=== PATIENT | male | born 1960 | race Caucasian/White ===

== ENCOUNTER 2019-08-09 10:51 | Outpatient (CLI) | payer BC, SELFPAY ==
[2019-08-09 12:24] LABS: Alanine Aminotransferase 19 U/L (16-63); Albumin Level 3.9 g/dL (3.4-5.0); Alkaline Phosphatase 112 U/L (46-116); Anion Gap 12.2 mmol/L (7-16); Aspartate Amino Transferase 26 U/L (15-37); Bilirubin,Total 0.7 mg/dL (0.00-1.00); Blood Urea Nitrogen 7 mg/dL (7-18); Calcium 9.7 mg/dL (8.5-10.1); Carbon Dioxide 31 mmol/L (21-32); Chloride 100 mmol/L (98-108); Cholesterol 146 mg/dL (0-200); Estimated Glomerular Filt Rate > 60; Glucose 130 mg/dL (70-99); HDL Direct 36 mg/dL (40-60); LDL Cholesterol Calculated 80 mg/dL (<130); Osmolality Calculated 288 mOsm/kg (285-295); Potassium 4.2 mmol/L (3.5-5.1); Sodium 139 mmol/L (136-145); Thyroid Stimulating Hormone 1.57 uIU/mL (0.36-3.74); Triglycerides 152 mg/dL (0-150)
[2019-08-09 13:31] LABS: Hemoglobin A1C 6.8 % (<5.7)
== END 2019-08-09 10:52 | disposition home or self-care (01) ==
PROVIDERS: PCP Nurse Practitioner Family; Visit Provider Nurse Practitioner Family
DX: Z00.00 Encounter for general adult medical examination without abnormal findings (principal); R73.09 Other abnormal glucose
CPT/HCPCS: 36415; 80053; 80061; 83036; 84443

== ENCOUNTER 2019-11-09 15:28 | Outpatient (CLI) | payer BC, SELFPAY ==
[2019-11-09 16:21] LABS: Cholesterol 139 mg/dL (0-200); HDL Direct 77 mg/dL (40-60); LDL Cholesterol Calculated 49 mg/dL (<130); Triglycerides 65 mg/dL (0-150)
[2019-11-10 16:33] LABS: Hemoglobin A1C 5.8 % (<5.7)
== END 2019-11-09 15:29 | disposition home or self-care (01) ==
LOC: CHSLAB 15:30
PROVIDERS: PCP Nurse Practitioner Family; Visit Provider Nurse Practitioner Family
DX: E78.5 Hyperlipidemia, unspecified (principal)
CPT/HCPCS: 36415; 80061; 83036

== ENCOUNTER 2020-02-22 11:47 | Outpatient (CLI) | payer BC, SELFPAY ==
--- NOTE | ~2020-02-22 | XR_ITS ---
XR hand LT 2V DATE: 02/22/2020 12:04 INDICATION: Swelling at second through fifth metacarpophalangeal areas for 3 days. No known injury. TECHNIQUE: AP and lateral views COMPARISON: None FINDINGS: No fracture or dislocation, periosteal reaction or bone destruction is detected. Joint spac es are preserved. No erosive change is evident. Very small likely degenerative ossicle at the medial aspect of the distal interphalangeal joint of th e second digit. Approximate 2 mm idiopathic calcific density or foreign body in the distal lateral forearm subcutaneo us tissues. IMPRESSION: No significant abnormality Reviewed, dictated and finalized at location A. ERN ROOM OPERATOR IMPRESSION: No significant abnormality
[2020-02-22 12:00] LABS: Basophils Absolute Auto 0.04 K/mm3 (0.00-0.10); Basophils Percent Auto 0.6 % (0.0-1.0); Eosinophils Absolute Auto 0.05 K/mm3 (0.02-0.50); Eosinophils Percent Auto 0.7 % (1.0-6.0); Hematocrit 42.7 % (40.0-54.0); Hemoglobin 14.1 g/dL (14.0-18.0); Immature Granulocyte Absolute 0.02 K/mm3 (0.00-0.00); Immature Granulocyte Percent A 0.3 % (0.0-0.0); Lymphocytes Absolute Auto 1.47 K/mm3 (1.10-4.50); Lymphocytes Percent Auto 20.8 % (18.0-42.0); Monocytes Absolute Auto 0.81 K/mm3 (0.10-0.90); Monocytes Percent Auto 11.5 % (2.0-11.0); Neutrophils Absolute Auto 4.7 K/mm3 (1.7-7.2); Neutrophils Percent Auto 66.1 % (50.0-70.0); Platelet Count Result 190 K/mm3 (150-420); Red Blood Count 4.27 M/mm3 (4.70-6.10); Red Cell Distribution Width 13.9 % (11.6-14.4); White Blood Count 7.1 K/mm3 (4.8-10.8)
[2020-02-22 12:24] LABS: Hemoglobin A1C 6.1 % (<5.7)
[2020-02-22 12:29] LABS: Alanine Aminotransferase 19 U/L (16-63); Alkaline Phosphatase 104 U/L (46-116); Anion Gap 7 mmol/L (8-16); Aspartate Amino Transferase 16 U/L (15-37); Bilirubin,Total 0.9 mg/dL (0.00-1.00); Blood Urea Nitrogen 17 mg/dL (7-18); Calcium 9.9 mg/dL (8.5-10.1); Carbon Dioxide 32 mmol/L (21-32); Chloride 101 mmol/L (98-108); Cholesterol 183 mg/dL (0-200); Estimated Glomerular Filt Rate > 60; Glucose 170 mg/dL (70-99); HDL Direct 49 mg/dL (40-60); LDL Cholesterol Calculated 93 mg/dL (<130); Osmolality Calculated 295 mOsm/kg (285-295); Potassium 4.1 mmol/L (3.5-5.1); Sodium 140 mmol/L (136-145); Total Protein 7.9 g/dL (6.4-8.2); Triglycerides 207 mg/dL (0-150); Uric Acid 5.8 mg/dL (3.5-7.2)
== END 2020-02-22 11:48 | disposition home or self-care (01) ==
PROVIDERS: PCP Nurse Practitioner Family; Visit Provider Nurse Practitioner Family
DX: M79.89 Other specified soft tissue disorders (principal); S69.90XA Unspecified injury of unspecified wrist, hand and finger(s), initial encounter; I10 Essential (primary) hypertension; E11.9 Type 2 diabetes mellitus without complications; E78.5 Hyperlipidemia, unspecified
CPT/HCPCS: 36415; 73120; 80053; 80061; 83036; 84550; 85025

== ENCOUNTER 2020-07-10 03:39 | Emergency (ER) | payer BC, SELFPAY ==
[2020-07-10 03:45] VITALS: BP 147/111; PULSE 99; RESP 20; TEMP 36.4; O2SAT 96
[2020-07-10 04:22] VITALS: BP 140/98; PULSE 82; RESP 20; O2SAT 97
--- NOTE | 2020-07-10 04:22 | ED.PSYCH ---
HPI - Psych General Source: patient Mode of arrival: ambulatory Limitations: no limitations History of Present Illness HPI Narrative: Patient comes in stating he has been anxious and feeling depressed. He states he has not wanted to do anything or even get out out of the house. He denies thoughts of self harm. Depression appears to be moderately severe, and ongoing. It appears this started some weeks ago according to the patient. He has taken Wellbutrin in the past and has done well with it. There appears to have been no initial clear cause of depression, with this episode. No precipitating event. Measures he has taken at home to try to help himself, and improve his mood have not helped. He took wellbutrin in the past for depression. He is wondering if it would help now. complaint: feels depressed Onset (ago): week(s) Duration: constant History of same: Yes Relieving factors: other (did well with wellbutrin in the past) Exacerbating factors: other (Covid isolation) Context: significant life stressor Associated psychiatric symptoms: depression Associated symptoms: denies other symptoms Related Data Allergies Allergy/AdvReac Type Severity Reaction Status Date / Time No Known Allergies Allergy Verified 06/06/20 15:26 Review of Systems Constitutional: Constitutional: Reports no additional constitutional complaints Eyes: Eyes: Reports no additional eye complaints ENT: Reports system reviewed and no additional complaints, except as documented Cardiovascular: Cardiovascular: Reports no additional cardiovascular complaints Respiratory: Respiratory: Reports no additional respiratory complaints Gastrointestinal: Gastrointestinal: Reports no additional gastrointestinal complaints Genitourinary: Genitourinary: Reports no additional male genitourinary complaints Musculoskeletal: Musculoskeletal: Reports no additional musculoskeletal complaints Integumentary/Breasts: Skin/Breast: Reports system reviewed and no additional complaints, except as docu Neurologic: Reports system reviewed and no additional complaints, except as documented Psychiatric: Psychiatric: Reports no additional psychiatric complaints Endocrine: Endocrine: Reports no additional endocrine complaints Hematologic/Lymphatic: Hematologic/Lymphatic: Reports no additional hematologic/lymphatic complaints Allergic/Immunologic: Allergic/Immunologic: Reports no additional allergic/immunologic complaints PMFSH Past Medical History Medical History HTN (hypertension) Hyperlipidemia Nicotine dependence, cigarettes, uncomplicated Type 2 diabetes mellitus Surgical History Surgical History (Updated 07/10/20 @ 04:45 by Tonio Robbins MD) No significant past surgical history No significant past surgical history Family History Family History (Updated 07/10/20 @ 04:46 by Tonio Robbins MD) Father Skin cancer Mother Unintentional weight loss Social History Social History Smoking packs per day: 1 Smoking cigarettes per day: 20.0 Years smoked: 40 Smoking pack-years: 40.00 Smoking status: Current every day smoker Tobacco type: cigarettes Alcohol intake: current Drinks per week: 1 Substance use: never Substance use type: does not use Exam Const: General: no acute distress Orientation/consciousness: patient oriented x3 HENMT: Head: normal to inspection Ears: external ears normal and TM's normal bilaterally General nose exam: Normal external nose present Face and sinus: normal facial exam Mouth: Yes Normal oral and palatal mucosa present Throat: posterior oropharynx normal Eyes: Conjunctivae: conjunctivae normal Neck: Neck: normal visual inspection Chest: Chest palpation & inspection: normal inspection of the chest Resp: Effort & Inspection: normal respiratory effort Auscultation: clear to auscultation bilateral
== END 2020-07-10 04:28 | disposition home or self-care (01) ==
PROVIDERS: Emergency Provider Emergency Medicine; PCP Family Medicine
DX: F33.1 Major depressive disorder, recurrent, moderate (principal)
CPT/HCPCS: 99281; 99282

== ENCOUNTER 2022-10-18 03:55 | Emergency (ER) | payer BC, SELFPAY ==
--- NOTE | ~2022-10-18 | XR_ITS ---
EXAMINATION: XR chest 1V portable DATE: 10/18/2022 07:36 INDICATION: Cough. Fatigue. TECHNIQUE: A single frontal view of the chest was obtained. COMPARISON: None. FINDINGS: There is no pneumonia, pleural effusion, or pneumothorax. The heart size is normal. IMPRESSION: 1. No acute cardiopulmonary disease. Reviewed, dictated and finalized at location A.
--- NOTE | 2022-10-18 04:58 | PC.NURSE ---
Please see paperchart. Downtime charting started at 0355.
--- NOTE | 2022-10-18 06:29 | ED.DIZZY ---
HPI - Dizziness General Chief Complaint: Dizziness Source: patient Mode of arrival: ambulatory Limitations: no limitations History of Present Illness HPI Narrative: This is a 62 male presents with some the sensation of feeling lightheaded has been having diarrhea with nausea for the past 3 days, otherwise no cough or congestion no fever chills no shortness of breath or chest pain. Patient does have a history of hyper tension was taken off his blood pressure medicines because the blood pressure had got quite low. MD elicited complaint: lightheadedness Onset (ago): day(s) Description: lightheadedness Related Data Allergies Allergy/AdvReac Type Severity Reaction Status Date / Time No Known Allergies Allergy Verified 06/06/20 15:26 Review of Systems Review of Systems: All systems reviewed & are unremarkable except as noted in HPI and below PMFSH Past Medical History Medical History HTN (hypertension) Hyperlipidemia Nicotine dependence, cigarettes, uncomplicated Type 2 diabetes mellitus Surgical History Surgical History No significant past surgical history No significant past surgical history Family History Family History Father Skin cancer Mother Unintentional weight loss Social History Social History Smoking packs per day: 1 Smoking cigarettes per day: 20.0 Years smoked: 40 Smoking pack-years: 40.00 Smoking status: Current every day smoker Tobacco type: cigarettes Alcohol intake: current Drinks per week: 1 Substance use: never Substance use type: does not use Living arrangements: with family Exam Const: General: healthy appearing Nutritional Appearance: well nourished Orientation/consciousness: patient oriented x3 Limitations: no limitations Eyes: Conjunctivae: conjunctivae normal Chest: Chest palpation & inspection: normal inspection of the chest Resp: Effort & Inspection: normal respiratory effort Cardio: Rate: regular rate Rhythm: regular rhythm GI: GI Palp: Yes Soft to palpation Auscultation: normal bowel sounds Skin: General skin exam: normal color Rashes: no rashes Wounds: no wounds Neuro: General: patient oriented x3 Cranial nerves: Yes Nystagmus not present Extrem: General: normal to inspection and no clubbing, cyanosis or edema Psych: Mental Status: mental status grossly normal Affect: normal affect Course Course Emergency Course: Patient had a lower blood pressure systolic about 95 and received the fluid bolus with normal saline and current blood pressure was 123/70, checking orthostatics while standing his blood pressure did drop to 92/60, patient received an additional 0.5L bolus of fluids, x-ray reviewed and the rest of his blood work was reviewed, sodium level was 129 and will repeat sodium levels. Critical Care Time Critical Care Time Critical Care Time: No Discharge Plan Discharge Clinical Impression: Gastroenteritis, Dehydration, Hyponatremia Patient Disposition: Home, Self-Care Condition: Stable Instructions: Antibiotic Form, Dehydration (ED), Hyponatremia (ED), Gastroenteritis (ED) Additional Instructions: advise rest, drink plenty of fluids and follow up primary within 1 to 2 weeks for further evaluation. Prescriptions: New ondansetron 4 mg tablet,disintegrating 4 mg PO Q6H PRN (Reason: nausea and vomiting) Qty: 14 0RF No Action loratadine 10 mg tablet See Rx Instructions .ROUTE .COMPLEX Qty: 30 0RF Dose Instruction: TAKE 1 TABLET BY MOUTH EVERY DAY Rx Instructions: TAKE 1 TABLET BY MOUTH EVERY DAY hydrochlorothiazide 12.5 mg tablet 12.5 mg PO DAILY Qty: 30 0RF Follow-up/Referrals: Leonel Lee DO [Primary Care Provider] - Stand Alone Forms: Work/Scho
[2022-10-18] MEDS: SODIUM CHLORIDE 0.9% IV 500 ML 999 ML IV CONT (06:35)
[2022-10-18 06:37] LABS: Appearance Urine Clear (Clear); Blood Urine Negative (Negative); Color Urine Yellow (Yellow); Glucose Urine UA Negative (Negative); Ketones Urine Trace (Negative); Nitrate Urine Negative (Negative); Protein Urine 1+ (Negative)
[2022-10-18 06:38] LABS: Add Urine Microscopic? YES; Bacteria Urine 2+ /hpf; Bilirubin Urine Negative (Negative); Leukocyte Esterase Ur Negative (Negative); RBC Urine 0-2 /hpf (0-2); Squamous Epithelial Cell Urine None seen /hpf (Few); WBC Urine 0-3 /hpf (0-3)
[2022-10-18 06:48] LABS: Influenza A QL RT-PCR Negative (Negative); Influenza B QL RT-PCR Negative (Negative); RSV RNA, RT-PCR Negative (Negative); SARS-CoV-2 RNA PCR Negative (Negative)
[2022-10-18 06:49] LABS: Alanine Aminotransferase 9 U/L (16-63); Albumin Level 2.9 g/dL (3.4-5.0); Alkaline Phosphatase 145 U/L (46-116); Anion Gap 14 mmol/L (8-16); Aspartate Amino Transferase 23 U/L (15-37); Blood Urea Nitrogen 15 mg/dL (7-18); Calcium 9.3 mg/dL (8.5-10.1); Carbon Dioxide 24 mmol/L (21-32); Chloride 91 mmol/L (98-108); Estimated Glomerular Filt Rate 57; Glucose 182 mg/dL (70-99); Osmolality Calculated 273 mOsm/kg (285-295); Potassium 4.3 mmol/L (3.5-5.1); Sodium 129 mmol/L (136-145); Total Protein 8.1 g/dL (6.4-8.2); Troponin I 7.4 ng/L (0.00-60.4)
[2022-10-18 06:50] LABS: Anion Gap 11 mmol/L (8-16); Blood Urea Nitrogen 15 mg/dL (7-18); Calcium 8.7 mg/dL (8.5-10.1); Carbon Dioxide 24 mmol/L (21-32); Chloride 95 mmol/L (98-108); Estimated Glomerular Filt Rate > 60; Glucose 148 mg/dL (70-99); Osmolality Calculated 273 mOsm/kg (285-295); Potassium 3.9 mmol/L (3.5-5.1); Sodium 130 mmol/L (136-145)
[2022-10-18 06:52] LABS: Basophils Absolute Auto 0.05 K/mm3 (0.00-0.10); Basophils Percent Auto 0.5 % (0.0-1.0); Eosinophils Absolute Auto 0.03 K/mm3 (0.02-0.50); Eosinophils Percent Auto 0.3 % (1.0-6.0); Hematocrit 34.2 % (40.0-54.0); Hemoglobin 11.1 g/dL (14.0-18.0); Immature Granulocyte Absolute 0.05 K/mm3 (0.00-0.00); Immature Granulocyte Percent A 0.5 % (0.0-0.0); Lymphocytes Absolute Auto 0.84 K/mm3 (1.10-4.50); Lymphocytes Percent Auto 8.5 % (18.0-42.0); Mean Corpuscular HGB Conc 32.5 g/dL (32.0-36.0); Mean Corpuscular Hemoglobin 29.4 pg (27.0-31.0); Mean Corpuscular Volume 90.7 fL (78.0-102.0); Mean Platelet Volume 10.1 fl (8.7-11.0); Monocytes Percent Auto 11.1 % (2.0-11.0); Neutrophils Absolute Auto 7.9 K/mm3 (1.7-7.2); Neutrophils Percent Auto 79.1 % (50.0-70.0); Platelet Count Result 255 K/mm3 (150-420); Red Blood Count 3.77 M/mm3 (4.70-6.10); Red Cell Distribution Width 13.9 % (11.6-14.4); White Blood Count 9.9 K/mm3 (4.8-10.8)
[2022-10-18 07:09] VITALS: BP 113/66; PULSE 83; RESP 20; O2SAT 96
[2022-10-18 07:25] VITALS: BP 109/95; PULSE 85; RESP 20; TEMP 36.9; O2SAT 98
--- NOTE | 2022-10-19 20:45 | ECG_ITS ---
Measurements Intervals [place] Rate: 86 P: 51 WI: 166 QRS: 50 QRSD: 69 T: 49 QT: 334 QTc: 400 Interpretive Statements SINUS RHYTHM WITH OCCASIONAL SUPRAVENTRICULAR PREMATURE COMPLEXES LOW QRS VOLTAGE IN PRECORDIAL LEADS [QRS DEFLECTION < 1.0 mV IN CHEST LEADS] NONSPECIFIC T-WAVE ABNORMALITY ABNORMAL ECG NO PREVIOUS ECG AVAILABLE FOR COMPARISON Electronically Signed On 10-20-2022 7:18:55 CDT by Sanjeev Gomez M.D.
== END 2022-10-18 07:28 | disposition home or self-care (01) ==
PROVIDERS: Emergency Provider Emergency Medicine; PCP Family Medicine
DX: K52.9 Noninfective gastroenteritis and colitis, unspecified (principal); E86.0 Dehydration; E87.1 Hypo-osmolality and hyponatremia; E11.9 Type 2 diabetes mellitus without complications; I10 Essential (primary) hypertension; F17.210 Nicotine dependence, cigarettes, uncomplicated; Z20.822 Contact with and (suspected) exposure to COVID-19
CPT/HCPCS: 36415; 71045; 80048; 80053; 81001; 84484; 85025; 87637; 93005; 96360; 99283; J7040

== ENCOUNTER 2022-12-05 18:58 | Inpatient (IN) | payer MEDICAID, SELFPAY ==
--- NOTE | ~2022-12-05 | US_ITS ---
EXAMINATION: US biopsy liver DATE: 12/06/2022 13:08 INDICATION: Multiple liver masses TECHNIQUE: The procedure including the risks and benefits was discussed with the patient. Risks discu ssed included bleeding and infection. The patient understood the risks and agreed to proceed. The sk in overlying the liver was prepped and draped in usual sterile fashion. Anesthetic was administered with 1% lidocaine subcutaneously. An 18 gauge core biopsy needle was advanced under continuous ultra sound observation to the lesion of interest. 3 core biopsy specimens were obtained. The needle was removed and the entry site was cleaned and dressed. Post procedure ultrasound demonstrated no hemorr sanket. FINDINGS: Ultrasound images demonstrate multiple hypoechoic hepatic masses. Subsequent images demonst rate biopsy needle advanced into an approximately 1.8 cm mass at the lateral segment of the left hepa tic lobe. IMPRESSION: 1. Successful Ultrasound-guided biopsy of one of several hyperechoic hepatic masses concerning for me tastatic disease. Reviewed, dictated and finalized at location A. IMPRESSION: 1. Successful Ultrasound-guided biopsy of one of several hyperechoic hepatic ma sses concerning for metastatic disease.
--- NOTE | ~2022-12-05 | CT_ITS ---
EXAMINATION: CT abdomen pelvis wo con DATE: 12/05/2022 22:15 INDICATION: Flank pain. Abdominal pain. TECHNIQUE: Computed tomography (CT) of the abdomen and pelvis was performed without intravenous contr ast. Automated exposure control and iterative reconstruction technique were employed. The dose-length product was 268.14 mGy-cm. COMPARISON: None. FINDINGS: The visualized portions of the lung bases demonstrate mild atelectasis. No pleural effusion . The heart size is normal. No pericardial effusion. There are multiple ill-defined hypodense masses in the liver measuring up to 18 mm. The gallbladder is contracted. The spleen, pancreas, adrenal glan ds, and kidneys are normal. There is focal wall thickening of the distal sigmoid colon, consistent wi th primary malignancy. There is severe wall thickening of the more proximal sigmoid colon with a fist raysa to the bladder, consistent with chronic diverticulitis. There is gas in the bladder lumen. There are scattered diverticula in the colon. There are no dilated loops of bowel. The appendix is normal. Aortic atherosclerosis is noted. There are no pathologically enlarged lymph nodes. There is prominent fat in left inguinal canal that may be a hernia. There is a small volume of perihepatic ascites. The re is severe lumbar spondylosis and moderate thoracic spondylosis. There is mild chronic anterior wed ging of multiple thoracic vertebral bodies. IMPRESSION: 1. Focal wall thickening of distal sigmoid colon, consistent with primary malignancy. 2. Liver masses, consistent with metastatic disease. Ultrasound-guided core biopsy is recommended. 3. Small volume of perihepatic ascites. 4. 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 Reviewed, dictated and finalized at location E. IMPRESSION: 1. Focal wall thickening of distal sigmoid colon, consistent with primary malig [place]. 2. Liver masses, consistent with metastatic disease. Ultrasound-guided core bio psy is recommended. 3. Small volume of perihepatic ascites. 4. 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
[2022-12-05 19:03] VITALS: BP 132/60; PULSE 97; RESP 18; TEMP 36.4; O2SAT 100
[2022-12-05 19:17] LABS: Basophils Absolute Auto 0.1 K/mm3 (0.0-0.1); Basophils Percent Auto 0.3 % (0.2-1.2); Eosinophils Absolute Auto 0.1 K/mm3 (0-0.3); Eosinophils Percent Auto 0.4 % (0-4.4); Hemoglobin 9.4 g/dL (14.0-18.0); Immature Granulocyte Absolute 0.09 K/mm3 (0.00-0.031); Immature Granulocyte Percent A 0.6 % (0-0.5); Lymphocytes Percent Auto 8.2 % (18.3-44.2); Mean Corpuscular HGB Conc 31.3 g/dl (32-36); Mean Corpuscular Hemoglobin 28.1 pg (26-34); Mean Corpuscular Volume 89.6 fl (80-100); Mean Platelet Volume 9.2 fl (7.4-10.4); Monocytes Absolute Auto 0.9 K/mm3 (0.1-0.6); Monocytes Percent Auto 6.4 % (2.6-8.5); Neutrophils Absolute Auto 12.3 K/mm3 (1.3-6.7); Neutrophils Percent Auto 84.1 % (45.5-73.1); Platelet Count Result 379 k/mm3 (150-375); Red Blood Count 3.35 M/mm3 (4.6-6.20); Red Cell Distribution Width 17.2 % (11.5-14.5); White Blood Count 14.6 K/mm3 (4.5-10.0)
[2022-12-05 19:30] LABS: Alanine Aminotransferase 14 U/L (6-50); Albumin Level 3.1 g/dL (3.5-5.1); Alkaline Phosphatase 258 U/L (38-126); Anion Gap 5 mmol/L (8-16); Aspartate Amino Transferase 29 U/L (17-59); Bilirubin,Total 0.9 mg/dL (0.2-1.3); Blood Urea Nitrogen 6 mg/dL (9-20); Calcium 8.5 mg/dL (8.4-10.2); Carbon Dioxide 30 mmol/L (22-30); Chloride 98 mmol/L (98-107); Estimated CRCL calculation 121 ml/min; Estimated Glomerular Filt Rate > 60; Glucose 127 mg/dL (65-110); Lipase 31 U/L (23-300); Potassium 3.4 mmol/L (3.4-5.0); Sodium 133 mmol/L (137-145)
[2022-12-05 20:53] LABS: Appearance Urine Turbid (Clear); Bilirubin Urine 3+ (Negative); Blood Urine 3+ (Negative); Color Urine Brown (Yellow); Glucose Urine UA Trace mg/dL (Negative); Ketones Urine 1+ mg/dL (Negative); Leukocyte Esterase Ur 3+ LEU/UL (Negative); Nitrate Urine Negative (Negative); Protein Urine 3+ mg/dL (Negative); Urobilinogen Urine >=8.0 mg/dL (<2.0); pH Urine 6.5 (5.0-9.0)
[2022-12-05 21:25] LABS: Add Urine Microscopic? YES
[2022-12-05 21:29] LABS: WBC Clumps Urine Present /HPF; WBC Urine >100 /hpf
[2022-12-05 21:30] LABS: Bacteria Urine 4+ /hpf; Mucus Urine Heavy /lpf; Need Manual Microscopic Yes
[2022-12-05 22:38] VITALS: BP 120/63; PULSE 103; RESP 17; O2SAT 99
--- NOTE | 2022-12-05 23:31 | ED.ABDPAIN ---
HPI - Abdominal Pain General Chief Complaint: Abdominal Pain Stated Complaint: abdominal and flank pain Time Seen by Provider: 12/05/22 21:54 History of Present Illness HPI narrative: 62-year-old male presented emergency department for evaluation of persistent lower abdominal pain. Patient states over the course of the last week he has had worsening urinary symptoms and states he has been passing some gas at the end of urination. Patient has no prior history of diverticulitis. Patient does complain of left lower quadrant pain. Related Data Home Medications Medication Instructions Recorded Confirmed aspirin 325 mg tablet 325 mg PO PRN PRN Pain 12/06/22 12/06/22 Allergies Allergy/AdvReac Type Severity Reaction Status Date / Time vince Allergy Nausea Verified 12/06/22 02:29 Review of Systems Review of Systems: All systems reviewed & are unremarkable except as noted in HPI and below PMFSH Past Medical History Medical History HTN (hypertension) Hyperlipidemia Nicotine dependence, cigarettes, uncomplicated Type 2 diabetes mellitus Surgical History Surgical History No significant past surgical history No significant past surgical history Family History Family History Father Skin cancer Mother Unintentional weight loss Social History Social History Smoking packs per day: 1 Smoking cigarettes per day: 20.0 Years smoked: 50 Smoking pack-years: 50.00 Smoking status: Current every day smoker Tobacco type: cigarettes Alcohol intake: current Drinks per week: 1 Substance use: former Substance use type: marijuana Last use: ~ 40 yrs ago Lack of Transportation: No Lack of Food: Never True Current Housing: I Have Housing Concerned About Future Housing: No Difficulty Paying Gas/Electric Bills: No Difficulty Paying for Meds: No Currently Unemployed: YES Education: Trade/Vocational Certificate Difficulty w/ Childcare or Family Care: No Living arrangements: with family Spiritual care concerns: No Exam Narrative: APPEARANCE: Well appearing, no pain, no distress, well-nourished. HEAD: normocephalic, atraumatic. EYES: PERRLA/EOMI, conjunctivae clear. NOSE: Normal no drainage EARS:TMS clear with good light reflex. THROAT: Pharynx clear, no exudate. NECK: Supple. No adenopathy, no masses. RESPIRATORY: Airway patent, respirations nonlabored. Clear to auscultation bilaterally, no rales, rhonchi, wheezing. CARDIOVASCULAR: Regular rate and rhythm without murmurs rubs or gallops. ABDOMINAL: Suprapubic and left lower quadrant tenderness to palpation MUSCULOSKELETAL: Moves all extremities. Strength/ROM intact, No edema, No calf tenderness. NEURO: Alert. Cranial nerves II through XII intact. Grossly intact SKIN: Warm, dry. Normal Color Course Course Emergency Course: 62-year-old male presented the ED for evaluation for lower abdominal tenderness. UA was concerning for urinary tract infection. CT was concerning for both colon cancer with the liver metastasis and a colovesicular fistula. With the initial UA result patient was started on Rocephin. With the results of the CT scan showing the colovesicular fistula patient was started on Zosyn. Dr. Sanchez from urology was initially consulted and stated that this was not a urologic issue and was to be managed by general surgery. Dr. Lewis was consulted. I updated the patient on the results of the CT scan including the concern for colon cancer with metastatic spread. Case was discussed with the hospitalist and patient was accepted for admission. Patient was stable at time of admission Vital Signs Vital signs: Vital Signs Temperature 97.6 F 12/05/22 19:03 Pulse Rate 97 12/05/22 19:03 Respiratory
[2022-12-06] MEDS: PIPERACILLN/TAZ 3.375GM/NS50ML 3.375 GM/50 ML BAG IVPB (00:14)
[2022-12-06] MEDS: SODIUM CHLORIDE 0.9% IV 1,000 ML 999 ML IV CONT (01:20)
[2022-12-06 01:28] VITALS: BP 109/74; PULSE 93; RESP 18; O2SAT 99
--- NOTE | 2022-12-06 02:20 | ADMGEN ---
This patient, Lenny Glover Jr., was admitted to Medical Room 250-01. Patient/family oriented to hospital policies and general routines including ID bracelet, bed and alarms, visiting hours, pain management, procedures, bathroom and other care routines, personal items, smoking policy, room service/diet, and visiting hours. Information on how to activate the Rapid Response Team has been discussed. Patient/Family are encouraged to report perceived risks to care and to ask questions if they do not understand what they are told or what they should do.
--- NOTE | 2022-12-06 02:30 | PC.NURSE ---
when asked about code status pt says he would like to be DNR.
[2022-12-06] MEDS: SODIUM CHLORIDE 0.9% IV 1,000 ML 100 ML IV CONT ×2 (03:18→13:33)
[2022-12-06 03:38] VITALS: BMI 18.5
[2022-12-06 03:39] VITALS: BP 131/55; PULSE 86; RESP 20; TEMP 36.1; O2SAT 99
[2022-12-06 08:49] LABS: INR 1.1; Partial Thromboplastin Time 32.9 SECONDS (22.3-36.8); Prothrombin Time 14.4 Seconds (11.1-14.7)
[2022-12-06 12:04] VITALS: BMI 18.5
--- NOTE | 2022-12-06 12:05 | PC.NURSE ---
patient taken off unit for liver biopsy.
--- NOTE | 2022-12-06 12:58 | PM.IMHP ---
H&P: HPI History of Present Illness Date/Time: 12/06/22 12:58 Chief Complaint: Lower abdominal pain Narrative: 62-year-old male presented to the ED with 2-3 weeks history of passing gas and feces to urine. He has some discomfort in the lower abdominal area however no discrete pain reported. He has also noticed the lumpiness in his lower left abdomen. He came to the ER for evaluation. UA suggestive for UTI. CT abdomen with focal wall thickening of distal sigmoid colon consistent with primary malignancy with liver masses consistent with metastatic disease. There is also chronic sigmoid diverticulitis with fistula to the bladder. Urology and general surgery has been consulted. Going for liver biopsy. Started on IV Zosyn which will be continued. Review of Systems Review of Systems: - CONSTITUTIONAL: Denies weight loss, fever and chills. - HEENT: Denies changes in vision and hearing - RESPIRATORY: Denies SOB and cough. - CV: Denies palpitations and CP. - GI: See HPI - : See HPI - MSK: Denies myalgia and joint pain. - SKIN: Denies rash and pruritus. - NEUROLOGICAL: Denies headache and syncope. - PSYCHIATRIC: Denies recent changes in mood. Denies anxiety and depression. [facility] Past Medical History Medical History HTN (hypertension) Hyperlipidemia Nicotine dependence, cigarettes, uncomplicated Type 2 diabetes mellitus Surgical History Surgical History No significant past surgical history No significant past surgical history Family History Family History Father Skin cancer Mother Unintentional weight loss Social History Social History Smoking packs per day: 1 Smoking cigarettes per day: 20.0 Years smoked: 50 Smoking pack-years: 50.00 Smoking status: Current every day smoker Tobacco type: cigarettes Alcohol intake: current Drinks per week: 1 Substance use: former Substance use type: marijuana Last use: ~ 40 yrs ago Lack of Transportation: No Lack of Food: Never True Current Housing: I Have Housing Concerned About Future Housing: No Difficulty Paying Gas/Electric Bills: No Difficulty Paying for Meds: No Currently Unemployed: YES Education: Trade/Vocational Certificate Difficulty w/ Childcare or Family Care: No Living arrangements: with family Spiritual care concerns: No Meds Home Medications and Allergies Home Medications Medication Instructions Recorded Confirmed Type aspirin 325 mg tablet 325 mg PO PRN PRN Pain 12/06/22 12/06/22 History Allergies Allergy/AdvReac Type Severity Reaction Status Date / Time vince Allergy Nausea Verified 12/06/22 02:29 Vital Signs Vital Signs - 24 hr 12/05/22 19:03 12/05/22 22:38 12/06/22 01:28 Temperature 97.6 F Pulse Rate 97 103 H 93 Respiratory Rate 18 17 18 Blood Pressure 132/60 120/63 109/74 Pulse Oximetry 100 99 99 Oxygen Delivery Room Air 12/06/22 03:28 12/06/22 03:39 12/06/22 08:05 Temperature 97.0 F L Pulse Rate 86 Respiratory Rate 20 Blood Pressure 131/55 L Pulse Oximetry 99 Oxygen Delivery Room Air Room Air H&P: Results Labs Labs: Short CBC 12/05/22 Range/Units 19:10 WBC 14.6 H (4.5-10.0) K/mm3 Hgb 9.4 L (14.0-18.0) g/dL Hct 30.0 L (42.0-52.0) % Plt Count 379 H (150-375) k/mm3 BMP 12/05/22 19:10 Sodium 133 L Potassium 3.4 Chloride 98 Carbon Dioxide 30 BUN 6 L Creatinine 0.50 L Glucose 127 H Calcium 8.5 Liver Function 12/05/22 Range/Units 19:10 Total Bilirubin 0.9 (0.2-1.3) mg/dL AST 29 (17-59) U/L ALT 14 (6-50) U/L Alkaline Phosphatase 258 H (38-126) U/L Albumin 3.1 L (3.5-5.1) g/dL Urine 12/05/22 Range/Units 20:03 Urine Color Brown H
--- NOTE | 2022-12-06 13:00 | PC.NURSE ---
patient returned from liver biopsy
[2022-12-06 13:50] VITALS: BP 118/55; PULSE 80; RESP 18; TEMP 36.4; O2SAT 100
--- NOTE | 2022-12-06 16:55 | WPDGICN ---
Assessment and Plan Assessment and plan (1) Abdominal pain: Code(s): R10.9 - Unspecified abdominal pain Status: Acute Assessment and Plan: he is tender on palpation but states that he has not had significant pain. He was only vaguely aware of something in the lower left side the last day or 2. 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 This can suggest that this is a neoplasm. Other possibilities for fistula are diverticulitis and Crohn's disease. (3) Mural thickening of sigmoid colon: Code(s): K63.9 - Disease of intestine, unspecified Status: Acute Assessment and Plan: CT findings suggest possible neoplasm or other process in the sigmoid colon. (4) Liver masses: Code(s): R16.0 - Hepatomegaly, not elsewhere classified Status: Acute Assessment and Plan: ultrasound-guided biopsy was done this afternoon for what appeared to be metastatic deposits in his liver (5) Abnormal CT scan, gastrointestinal tract: Code(s): R93.3 - Abnormal findings on diagnostic imaging of other parts of digestive tract Status: Acute Assessment and Plan: CT scan shows: 1. Focal wall thickening of distal sigmoid colon, consistent with primary malignancy. 2. Liver masses, consistent with metastatic disease. Ultrasound-guided core biopsy is recommended. 3. Small volume of perihepatic ascites. 4. 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 Plan colonoscopy tomorrow morning to obtain biopsies of what is likely neoplasm in the sigmoid colon. I discussed with the patient the procedure, the prep in the possible risks such as bleeding or perforation. He understands. This will be scheduled for tomorrow morning GI Consult Note Consult date/time: 12/06/22 16:55 HPI: Lenny Jeremias Glover Jr. is a 62 year old male who presented to the ED last night with persistent lower abdominal pain. He states that for the past week he has had what he thinks is an infection in his bladder. He passes dark colored urine at times it looks like there is stool particles in his urine. Also he has pneumaturia passing air towards the end of his urination. He has had loose bowel movements lately. He has not been having abdominal pain but was aware of some vague discomfort in the left lower quadrant. He has never had a colonoscopy. He has never had any colon diseases such as colitis to his knowledge. His appetite has been good. He denies nausea or vomiting. He has no past history of liver disease pancreatic disease or gallbladder disease. He is not currently under the care of physician. Review of Systems Review of Systems: All systems reviewed & are unremarkable except as noted in HPI and below PMFSH Past Medical History Medical History HTN (hypertension) Hyperlipidemia Nicotine dependence, cigarettes, uncomplicated Type 2 diabetes mellitus Surgical History Surgical History No significant past surgical history No significant past surgical history Family History Family History Father Skin cancer Mother Unintentional weight loss Social History Social History Smoking packs per day: 1 Smoking cigarettes per day: 20.0 Years smoked: 50 Smoking pack-years: 50.00 Smoking status: Current every day smoker Tobacco type: cigarettes Alcohol intake: current Drinks per week: 1 Substance use: former Substance use type: marijuana Last use: ~ 40 yrs ago Lack of Transportation: No Lack of Food: Never True Current Housing: [facility]
[2022-12-06] MEDS: polyethylene glycoL 3350 238 GM BOTTLE PO (17:43)
--- NOTE | 2022-12-06 18:22 | PM.CNGS ---
Assessment and Plan Assessment and plan (1) Abnormal CT scan, gastrointestinal tract: Code(s): R93.3 - Abnormal findings on diagnostic imaging of other parts of digestive tract Status: Acute Assessment and Plan: Patient was admitted with findings of urinary tract infection with colovesical fistula. His findings on CT are concerning for malignancy with metastases to the liver. This makes him a very poor overall surgical candidate due to risk progression of metastatic disease chemotherapy treatment is delayed at all. Ultrasound-guided liver biopsy was performed today and this should give enough of a diagnosis to determine further treatment. He will likely need to see Oncology once liver biopsy pathology is reported. Treatment of the fistula will likely need to be delayed unless this is a hindrance to initiating chemotherapy. Will follow along with patient as needed. 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 Status: Acute (3) Liver masses: Code(s): R16.0 - Hepatomegaly, not elsewhere classified Status: Acute (4) Acute UTI: Code(s): N39.0 - Urinary tract infection, site not specified Status: Acute (5) Type 2 diabetes mellitus: Code(s): E11.9 - Type 2 diabetes mellitus without complications Status: Chronic (6) Nicotine dependence, cigarettes, uncomplicated: Code(s): F17.210 - Nicotine dependence, cigarettes, uncomplicated Status: Chronic (7) HTN (hypertension): Code(s): I10 - Essential (primary) hypertension Status: Chronic History of Present Illness Consult details Consult date: 12/06/22 Reason for consult: other (Colovesical fistula) Requesting physician: Clayton Samuel MD Narrative: This is a 62 year old man who I am asked to see for findings of a colovesical fistula. He presented to the emergency department overnight with urinary tract infection symptoms. He has also been having some left lower quadrant pain. He just started experiencing pneumaturia over the past 24 hours. He was also noting some flecks of fecal material in his urine stream. He denies any significant bowel habit changes other than some looser stool over the past 2 weeks. He denies any blood in his stool. He has never had a colonoscopy. Workup in the emergency department showed evidence a urinary tract infection elevated white blood count. He was also noted to have significantly elevated alk-phos level. CT in the emergency department had multiple findings including wall thickening of the distal colon consistent with primary malignancy, multiple liver masses consistent with metastatic disease, and chronic wall thickening of the colon with colovesical fistula consistent diverticulitis and fistula formation. He has been admitted for further workup and treatment. Review of Systems Review of Systems: All systems reviewed & are unremarkable except as noted in HPI and below Constitutional: Constitutional: Denies chills and Denies fever(s) Eyes: Eyes: Denies change in vision ENT: Denies hearing loss, Denies neck pain and Denies sore throat Cardiovascular: Cardiovascular: Denies chest pain and Denies dyspnea Respiratory: Respiratory: Denies cough, Denies dyspnea and Denies wheezing Gastrointestinal: Gastrointestinal: Reports as per HPI Genitourinary: Genitourinary: Reports as per HPI and Reports dysuria Musculoskeletal: Musculoskeletal: Denies arthralgias, Denies joint swelling and Denies neck pain Allergic/Immunologic: Allergic/Immunologic: Denies wheezing FORMERLY [facility] Past Medical History Medical History HTN (hypertension) Hyperlipidemia Nicotine dependence, cigarettes, uncomplicated Type 2 diabetes mellitus Surgical History Surgical History No significant past surgical history No significant past surgical history Family H
[2022-12-06 22:00] VITALS: BP 108/49; PULSE 82; RESP 21; TEMP 36.4; O2SAT 100
[2022-12-07] VITALS (9 sets, daily range): BP systolic 93–134; BP diastolic 57–90; PULSE 75–92; RESP 14–21; TEMP 36.2–36.5; O2SAT 96–100
[2022-12-07] MEDS: SODIUM CHLORIDE 0.9% IV 1,000 ML 100 ML IV CONT ×2 (00:09→14:06)
[2022-12-07 06:00] LABS: Basophils Percent Auto 0.2 % (0.2-1.2); Eosinophils Percent Auto 0.1 % (0-4.4); Hematocrit 27.5 % (42.0-52.0); Hemoglobin 8.7 g/dL (14.0-18.0); Immature Granulocyte Absolute 0.11 K/mm3 (0.00-0.031); Immature Granulocyte Percent A 0.6 % (0-0.5); Lymphocytes Absolute Auto 1.24 K/mm3 (0.9-3.2); Lymphocytes Percent Auto 7.1 % (18.3-44.2); Mean Corpuscular HGB Conc 31.6 g/dl (32-36); Mean Corpuscular Hemoglobin 28.4 pg (26-34); Mean Corpuscular Volume 89.9 fl (80-100); Mean Platelet Volume 9.1 fl (7.4-10.4); Monocytes Absolute Auto 0.9 K/mm3 (0.1-0.6); Neutrophils Absolute Auto 15.2 K/mm3 (1.3-6.7); Platelet Count Result 346 k/mm3 (150-375); Red Blood Count 3.06 M/mm3 (4.6-6.20); Red Cell Distribution Width 17.7 % (11.5-14.5); White Blood Count 17.5 K/mm3 (4.5-10.0)
[2022-12-07 06:10] LABS: Alanine Aminotransferase 13 U/L (6-50); Albumin Level 2.9 g/dL (3.5-5.1); Alkaline Phosphatase 237 U/L (38-126); Anion Gap 5 mmol/L (8-16); Aspartate Amino Transferase 31 U/L (17-59); Bilirubin,Total 0.9 mg/dL (0.2-1.3); Blood Urea Nitrogen 4 mg/dL (9-20); Carbon Dioxide 26 mmol/L (22-30); Chloride 103 mmol/L (98-107); Estimated CRCL calculation 102 ml/min; Estimated Glomerular Filt Rate > 60; Glucose 117 mg/dL (65-110); Magnesium 1.9 mg/dL (1.6-2.3); Potassium 3.2 mmol/L (3.4-5.0); Sodium 134 mmol/L (137-145)
[2022-12-07 06:20] LABS: Hypochromasia 1+ (NORMAL); Platelet Estimate Adequate (Adequate); Schistocytes Rare (NORMAL)
--- NOTE | 2022-12-07 06:45 | PC.NURSE ---
Pt taken down to GI lab for colonoscopy approx. @ [phone].
--- NOTE | 2022-12-07 07:10 | PC.NURSE ---
Patient down in GI lab for colonoscopy at time of morning round.
[2022-12-07] MEDS: LACTATED RINGERS 1,000 ML 150 ML IV CONT (07:15)
--- NOTE | 2022-12-07 07:29 | WPDANESEPP ---
Anes - Eval Pre Procedure Procedure: Operation Date: 12/07/22 07:30 Proposed Procedures p Colonoscopy - David William MD Date/Time: 12/07/22 07:29 Surgeon: Nataliia Preop Diagnosis: liver mass, colovesicular fistula, colon cancer Pre Op Diagnosis: Colovesicular Fistula, Colon Cancer, Liver Mass Patient Data Age: 62 Gender: M Height: 1.75 m Weight: 56.9 kg Last Vital Signs Temp 36.2 C L 12/07/22 07:00 Pulse 87 12/07/22 07:00 Resp 18 12/07/22 07:00 BP 134/78 12/07/22 07:00 Pulse Ox 100 12/07/22 07:00 O2 Del Method Room Air 12/07/22 07:00 Allergies Allergy/AdvReac Type Severity Reaction Status Date / Time vince Allergy Nausea Verified 12/07/22 06:58 Home Medications Medication Instructions Recorded Confirmed Type aspirin 325 mg tablet 325 mg PO PRN PRN Pain 12/06/22 12/06/22 History Laboratory Tests 12/06/22 12/07/22 08:29 05:36 WBC 17.5 H K/mm3 (4.5-10.0) RBC 3.06 L M/mm3 (4.6-6.20) Hgb 8.7 L g/dL (14.0-18.0) Hct 27.5 L % (42.0-52.0) MCV 89.9 fl (80-100) MCH 28.4 pg (26-34) MCHC 31.6 L g/dl (32-36) RDW 17.7 H % (11.5-14.5) Plt Count 346 k/mm3 (150-375) MPV 9.1 fl (7.4-10.4) Immature Gran % (Auto) 0.6 H % (0-0.5) Neut % (Auto) 87.0 H % (45.5-73.1) Lymph % (Auto) 7.1 L % (18.3-44.2) [place] % (Auto) 5.0 % (2.6-8.5) Eos % (Auto) 0.1 % (0-4.4) Baso % (Auto) 0.2 % (0.2-1.2) Lymph # (Auto) 1.24 K/mm3 (0.9-3.2) [place] # (Auto) 0.9 H K/mm3 (0.1-0.6) Eos # (Auto) 0.0 K/mm3 (0-0.3) Baso # (Auto) 0.0 K/mm3 (0.0-0.1) Abs Immat Gran (auto) 0.11 H K/mm3 (0.00-0.031) Absolute Neuts (auto) 15.2 H K/mm3 (1.3-6.7) Absolute Nucleated RBC 0.0 K/mm3 (0.0-0.012) Nucleated RBC % 0.0 % (0.0-0.2) Platelet Estimate Adequate (Adequate) Hypochromasia 1+ (NORMAL) Schistocytes Rare (NORMAL) PT 14.4 Seconds (11.1-14.7) INR 1.1 APTT 32.9 SECONDS (22.3-36.8) Sodium 134 L mmol/L (137-145) Potassium 3.2 L mmol/L (3.4-5.0) Chloride 103 mmol/L (98-107) Carbon Dioxide 26 mmol/L (22-30) Anion Gap 5 L mmol/L (8-16) BUN 4 L mg/dL (9-20) Creatinine 0.50 L mg/dL (0.7-1.3) Estim Creat Clear Calc 102 ml/min Estimated GFR > 60 (59 - ) Glucose 117 H mg/dL (65-110) Calcium 8.0 L mg/dL (8.4-10.2) Magnesium 1.9 mg/dL (1.6-2.3) Total Bilirubin 0.9 mg/dL (0.2-1.3) AST 31 U/L (17-59) ALT 13 U/L (6-50) Alkaline Phosphatase 237 H U/L (38-126) Total Protein 7.0 g/dL (6.3-8.2) Albumin 2.9 L g/dL (3.5-5.1) Carcinoembryonic Ag 202.0 H ng/mL (0.0-3.0) Patient hx anesthesia problems: none Family hx anesthesia problems: none Results Review: All pre-operative results and documents have been reviewed as part of the pre-operative evaluation. FOR[facility]LY [facility] Past Medical History Medical History HTN (hypertension) Hyperlipidemia Nicotine dependence, cigarettes, uncomplicated Type 2 diabetes mellitus Surgical History Surgical History No significant past surgical history No significant past surgical history Family History Family History Father Skin cancer Mother Unintentional weight loss Social History Social History Smoking packs per day: 1 Smoking cigarettes per day: 20.0 Years smoked: 50 Smoking pack-years: 50.00 Smoking status: Current every day smoker Tobacco type: cigarettes Alcohol intake: current Drinks per week: 1 Substance use: former Substa
--- NOTE | 2022-12-07 07:46 | P.PNAN_ITS ---
Anes - Eval Final PreProcedure Day of Procedure 12/07/22 07:46 Patient weight: normal Heart: regular rate and rhythm Lungs: clear to auscultation and normal air movement Airway: Mallampati scale class II Neurological: alert and oriented Last oral intake: >/= 8 hours ASA classification: III Emergent: no Anesthetic plan: proceed Anesthesia type and monitoring: general GIVS and standard monitoring Results Review: All pre-operative results and documents have been reviewed as part of the pre- operative evaluation. Informed Consent: The patient's anesthetic plan and its attendant risks and benefits were discussed with the patient/family/POA. Questions were solicited and answers provided to the satisfaction of the patient/family/POA.
[2022-12-07] MEDS: PIPERACILLN/TAZ 3.375GM/NS50ML 3.375 GM/50 ML BAG IVPB ×3 (10:08→20:41)
--- NOTE | 2022-12-07 12:14 | PM.IMPN ---
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 He has some discomfort in the lower abdominal area however no discrete pain reported. He has also noticed the lumpiness in his lower left abdomen. He came to the ER for evaluation. UA suggestive for UTI. CT abdomen with focal wall thickening of distal sigmoid colon consistent with primary malignancy with liver masses consistent with metastatic disease. There is also chronic sigmoid diverticulitis with fistula to the bladder. Urology and general surgery has been consulted. Started on IV Zosyn which will be continued. Urine culture with E coli and group C Streptococcus. Continue Zosyn IV General surgery suggest oncology consultation May need to transfer to higher facility due to fistula Will get oncology consulted Status post colonoscopy with colonic mass biopsies were obtained. Await for the biopsy result. Subjective Date/time seen: 12/07/22 12:14 Interval history: No new complaints. Underwent colonoscopy yesterday with colonic mass. Biopsy of the liver was also performed. Review of Systems Review of Systems: All systems reviewed & are unremarkable except as noted in HPI and below Exam Narrative: APPEARANCE: Well appearing, no pain, no distress, well-nourished. HEAD: normocephalic, atraumatic. EYES: PERRLA/EOMI, conjunctivae clear. NOSE: Normal no drainage EARS:TMS clear with good light reflex. THROAT: Pharynx clear, no exudate. NECK: Supple. No adenopathy, no masses. RESPIRATORY: Airway patent, respirations nonlabored. Clear to auscultation bilaterally, no rales, rhonchi, wheezing. CARDIOVASCULAR: Regular rate and rhythm without murmurs rubs or gallops. ABDOMINAL: Suprapubic and left lower quadrant tenderness to palpation MUSCULOSKELETAL: Moves all extremities. Strength/ROM intact, No edema, No calf tenderness. NEURO: Alert. Cranial nerves II through XII intact.? Grossly intact SKIN: Warm, dry. Normal Color Objective Data Vital Signs Vital Signs: Vital Signs - 24 hr 12/06/22 13:50 12/06/22 22:00 12/06/22 21:40 Temperature 97.6 F 97.5 F L Pulse Rate 80 82 Respiratory Rate 18 21 H Blood Pressure 118/55 L 108/49 L Pulse Oximetry 100 100 Oxygen Delivery Room Air 12/07/22 06:00 12/07/22 07:00 12/07/22 07:52 Temperature 97.1 F L 97.2 F L Pulse Rate 92 87 81 Respiratory Rate 20 18 14 Blood Pressure 134/64 134/78 100/57 L Pulse Oximetry 98 100 96 Oxygen Delivery Room Air Room Air 12/07/22 08:02 12/07/22 08:12 12/07/22 08:47 Temperature 97.2 F L Pulse Rate 75 80 82 Respiratory Rate 14 18 16 Blood Pressure 93/58 L 112/67 129/90 Pulse Oximetry 97 97 100 Oxygen Delivery Room Air Room Air 12/07/22 08:40 Temperature Pulse Rate Respiratory Rate Blood Pressure Pulse Oximetry Oxygen Delivery Room Air Intake/Output Intake/Output: Intake & Output 12/04/22 12/05/22 12/06/22 12/07/22 23:59 23:59 23:59 23:59 Intake Total 50 3300 150 Output Total 6 Balance 50 3300 144 Meds/Results Medications: Active Medications Generic Name Dose Route Start Last Admin Trade Name Freq PRN Reason Stop Dose Admin Hydromorphone HCl 0.5 mg 12/06/22 01:04 Hydromorphone Hcl Inj (*Crx) 1 Mg/Ml Syr IV PUSH Q4H PRN Pain Rated 7-10 Sodium Chloride 1,000 mls @ 100 mls/hr 12/06/22 01:05 12/07/22 00:09 Normal Saline Iv
--- NOTE | 2022-12-07 12:33 | PM.PNGS ---
Progress Note: A&P Assessment and Plan (1) Abnormal CT scan, gastrointestinal tract: Code(s): R93.3 - Abnormal findings on diagnostic imaging of other parts of digestive tract Status: Acute Assessment and Plan: Continue broad-spectrum antibiotics and await culture results. Findings suggestive stage IV colon cancer. Will likely need oncology evaluation to determine best next steps going forward. Surgery will be extremely complicated given the fistula and liver metastases. Any surgery will also delay the initiation of chemotherapy which will be a detriment to the patient and his overall prognosis. Will continue to follow along. (2) Liver masses: Code(s): R16.0 - Hepatomegaly, not elsewhere classified Status: Acute Assessment and Plan: Ultrasound-guided biopsy performed on 12/06/2022. Awaiting final pathology. CEA level is 202. 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 May need to remain on long-term antibiotics as long as fistula is present. (5) Nicotine dependence, cigarettes, uncomplicated: Code(s): F17.210 - Nicotine dependence, cigarettes, uncomplicated Status: Chronic (6) Type 2 diabetes mellitus: Code(s): E11.9 - Type 2 diabetes mellitus without complications Status: Chronic (7) HTN (hypertension): Code(s): I10 - Essential (primary) hypertension Status: Chronic Subjective Subjective Date/Time Seen: 12/07/22 12:33 Interval history: Patient underwent flexible sigmoidoscopy this morning. Rectal and sigmoid masses biopsied but unable to traverse the mass. Patient still feeling some burning with urination. Exam GI: Inspection: non-distended GI Palp: Yes Soft to palpation, No Tenderness to palpation present (GI), No Guarding due to palpation present (GI) and Yes Palpable mass present (Left lower quadrant) Auscultation: normal bowel sounds : Other: Scrotal erythema and mild induration but no signs of abscess. Objective Data Vital Signs Vital Signs: Vital Signs - 24 hr 12/06/22 13:50 12/06/22 22:00 12/06/22 21:40 Temperature 36.4 C 36.4 C L Pulse Rate 80 82 Respiratory Rate 18 21 H Blood Pressure 118/55 L 108/49 L Pulse Oximetry 100 100 Oxygen Delivery Room Air 12/07/22 06:00 12/07/22 07:00 12/07/22 07:52 Temperature 36.2 C L 36.2 C L Pulse Rate 92 87 81 Respiratory Rate 20 18 14 Blood Pressure 134/64 134/78 100/57 L Pulse Oximetry 98 100 96 Oxygen Delivery Room Air Room Air 12/07/22 08:02 12/07/22 08:12 12/07/22 08:47 Temperature 36.2 C L Pulse Rate 75 80 82 Respiratory Rate 14 18 16 Blood Pressure 93/58 L 112/67 129/90 Pulse Oximetry 97 97 100 Oxygen Delivery Room Air Room Air 12/07/22 08:40 Temperature Pulse Rate Respiratory Rate Blood Pressure Pulse Oximetry Oxygen Delivery Room Air Intake/Output Intake/Output: Intake & Output 12/04/22 12/05/22 12/06/22 12/07/22 23:59 23:59 23:59 23:59 Intake Total 50 3300 150 Output Total 6 Balance 50 3300 144 Meds/Results Medications: Active Medications Generic Name Dose Route Start Last Admin Trade Name Freq PRN Reason Stop Dose Admin Hydromorphone HCl 0.5 mg 12/06/22 01:04 Hydromorphone Hcl Inj (*Crx) 1 Mg/Ml Syr IV PUSH Q4H PRN Pain Rated 7-10 Sodium Chloride 1,000 mls @ 100 mls/hr 12/06/22 01:05 12/07/22 00:09 Normal Saline Iv IV CONT 100 mls/hr .Q10H ANDREAS Administration Piperacillin/Tazobactam/Dextrose 3.375 gm in 50 mls @ 100 mls/hr 12/07/22 09:00 12/07/22 10:38 Zosyn 3.375 Gm/Ns 50 Ml IVPB Infused Q6H ANDREAS Infusion Ondansetron HCl 4 mg 12/06/22 01:04 Ondansetron Inj 4 Mg/2 Ml Vial IV PUSH Q4H PRN Nausea Radiology Results: ITS Impr
[2022-12-08] MEDS: SODIUM CHLORIDE 0.9% IV 1,000 ML 100 ML IV CONT ×2 (01:12→16:41)
[2022-12-08] MEDS: PIPERACILLN/TAZ 3.375GM/NS50ML 3.375 GM/50 ML BAG IVPB ×3 (03:56→14:52)
[2022-12-08] MEDS: ACETAMINOPHEN 325 MG TABLET 650 MG PO ×2 (04:17→14:49)
[2022-12-08 05:44] LABS: Basophils Percent Auto 0.2 % (0.2-1.2); Eosinophils Percent Auto 0.4 % (0-4.4); Hematocrit 23.4 % (42.0-52.0); Hemoglobin 7.3 g/dL (14.0-18.0); Immature Granulocyte Absolute 0.08 K/mm3 (0.00-0.031); Immature Granulocyte Percent A 0.8 % (0-0.5); Lymphocytes Absolute Auto 0.93 K/mm3 (0.9-3.2); Lymphocytes Percent Auto 9.1 % (18.3-44.2); Mean Corpuscular HGB Conc 31.2 g/dl (32-36); Mean Corpuscular Hemoglobin 28.1 pg (26-34); Mean Platelet Volume 9.3 fl (7.4-10.4); Monocytes Absolute Auto 0.6 K/mm3 (0.1-0.6); Neutrophils Absolute Auto 8.5 K/mm3 (1.3-6.7); Neutrophils Percent Auto 83.5 % (45.5-73.1); Platelet Count Result 274 k/mm3 (150-375); Red Cell Distribution Width 17.6 % (11.5-14.5); White Blood Count 10.2 K/mm3 (4.5-10.0)
[2022-12-08 06:19] VITALS: BP 116/63; PULSE 78; RESP 16; TEMP 36.4; O2SAT 99
[2022-12-08 06:34] LABS: Alanine Aminotransferase 11 U/L (6-50); Albumin Level 2.2 g/dL (3.5-5.1); Alkaline Phosphatase 195 U/L (38-126); Anion Gap 1 mmol/L (8-16); Aspartate Amino Transferase 23 U/L (17-59); Bilirubin,Total 0.5 mg/dL (0.2-1.3); Blood Urea Nitrogen 4 mg/dL (9-20); Calcium 7.5 mg/dL (8.4-10.2); Carbon Dioxide 26 mmol/L (22-30); Chloride 106 mmol/L (98-107); Estimated CRCL calculation 102 ml/min; Estimated Glomerular Filt Rate > 60; Glucose 126 mg/dL (65-110); Potassium 2.8 mmol/L (3.4-5.0); Sodium 133 mmol/L (137-145)
[2022-12-08] MEDS: POTASSIUM CHLORIDE INJ 40 MEQ in SODIUM CHLORIDE 0.9% IV 500 ML 130 MEQ IVPB (09:55)
[2022-12-08 10:03] VITALS: O2SAT 96
--- NOTE | 2022-12-08 12:12 | PM.IMPN ---
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 He has some discomfort in the lower abdominal area however no discrete pain reported. He has also noticed the lumpiness in his lower left abdomen. He came to the ER for evaluation. UA suggestive for UTI. CT abdomen with focal wall thickening of distal sigmoid colon consistent with primary malignancy with liver masses consistent with metastatic disease. There is also chronic sigmoid diverticulitis with fistula to the bladder. Urology and general surgery has been consulted. Started on IV Zosyn which will be continued. Urine culture with E coli and group C Streptococcus. Continue Zosyn IV. General surgery suggest oncology consultation. Oncology consultation pending. Will initiate transfer to higher facility Status post colonoscopy with colonic mass biopsies were obtained. Await for the biopsy result. Subjective Date/time seen: 12/08/22 12:12 Interval history: No overnight events. Feels okay. Remains afebrile. Review of Systems Review of Systems: All systems reviewed & are unremarkable except as noted in HPI and below Exam Narrative: APPEARANCE: Well appearing, no pain, no distress, well-nourished. HEAD: normocephalic, atraumatic. EYES: PERRLA/EOMI, conjunctivae clear. NOSE: Normal no drainage EARS:TMS clear with good light reflex. THROAT: Pharynx clear, no exudate. NECK: Supple. No adenopathy, no masses. RESPIRATORY: Airway patent, respirations nonlabored. Clear to auscultation bilaterally, no rales, rhonchi, wheezing. CARDIOVASCULAR: Regular rate and rhythm without murmurs rubs or gallops. ABDOMINAL: Suprapubic and left lower quadrant tenderness to palpation MUSCULOSKELETAL: Moves all extremities. Strength/ROM intact, No edema, No calf tenderness. NEURO: Alert. Cranial nerves II through XII intact.? Grossly intact SKIN: Warm, dry. Normal Color Objective Data Vital Signs Vital Signs: Vital Signs - 24 hr 12/07/22 14:00 12/07/22 20:27 12/07/22 20:00 Temperature 97.4 F L 97.7 F Pulse Rate 80 91 Respiratory Rate 16 21 H Blood Pressure 130/88 121/67 Pulse Oximetry 100 100 Oxygen Delivery Room Air 12/07/22 21:44 12/08/22 06:19 12/08/22 10:03 Temperature 97.6 F Pulse Rate 78 Respiratory Rate 16 Blood Pressure 116/63 Pulse Oximetry 100 99 96 Oxygen Delivery Room Air Room Air 12/08/22 09:00 Temperature Pulse Rate Respiratory Rate Blood Pressure Pulse Oximetry Oxygen Delivery Room Air Intake/Output Intake/Output: Intake & Output 12/05/22 12/06/22 12/07/22 12/08/22 23:59 23:59 23:59 23:59 Intake Total 50 3300 2030 1640 Output Total 6 Balance 50 3300 2024 1640 Meds/Results Medications: Active Medications Generic Name Dose Route Start Last Admin Trade Name Freq PRN Reason Stop Dose Admin Acetaminophen 650 mg 12/08/22 04:00 12/08/22 04:17 Acetaminophen 325 Mg Tablet PO 650 mg Q6H PRN Administration Mild Pain (1-3) or Fever Hydromorphone HCl 0.5 mg 12/06/22 01:04 Hydromorphone Hcl Inj (*Crx) 1 Mg/Ml Syr IV PUSH Q4H PRN Pain Rated 7-10 Sodium Chloride 1,000 mls @ 100 mls/hr 12/06/22 01:05 12/08/22 01:12 Normal Saline Iv IV CONT 100 mls/hr .Q10H ANDREAS Administration Piperacillin/Tazobactam/Dextrose 3.375 gm in 50 mls @ 100 mls/hr 12/07/22 09:00 12/08/22 09:03 Zosyn 3.
[2022-12-08 14:00] VITALS: BP 118/69; PULSE 75; RESP 16; TEMP 36.6; O2SAT 97
--- NOTE | 2022-12-08 14:16 | PDONCCN ---
[facility] - Date of Consult Date/Time: 12/08/22 14:16 Requesting Physician: Kenna Garcia DO Primary Care Provider: ASSISTANT ADMINISTRATOR PHYSICIAN - Consult Narrative Reason for consult: Metastatic colon cancer Narrative: Lenny Glover Jr. is a 62 year old male with no history of malignancy and never had colonoscopy done in the past presented to the ER with complain of 2-3 weeks history of passing gas and feces to the urine. He had 1 episode of blood in this in the urine. He has lost almost 10-15 lb weight. Denies any chest pain and shortness of breath. CT abdomen showed focal wall thickening of the distal sigmoid colon with multiple liver masses. CEA was elevated at 202. Patient had ultrasound-guided biopsy of the liver mass done on December 06 and pathology is pending. He denies any other new complaints. Review of Systems - Review of Systems All systems reviewed & are unremarkable except as noted in HPI and [facility] Medical History: Medical History (Last Reviewed 12/07/22 @ 07:30 by Lidia Tovar CRNA) HTN (hypertension) Hyperlipidemia Nicotine dependence, cigarettes, uncomplicated Type 2 diabetes mellitus Surgical History: Surgical History (Last Reviewed 12/07/22 @ 07:30 by Lidia Tovar CRNA) No significant past surgical history No significant past surgical history Family History: Family History (Last Reviewed 12/07/22 @ 07:30 by Lidia Tovar CRNA) Father Skin cancer Mother Unintentional weight loss - Social History Social History: Social History (Last Reviewed 12/07/22 @ 07:30 by Lidia Tovar CRNA) Alcohol Use: Alcohol intake: current Drinks per week: 1 Substance Use: Substance use: former Substance use type: marijuana Last use: ~ 40 yrs ago Others: Spiritual care concerns: No Living Arrangements: Living arrangements: with family Smoking Status: Smoking status: Current every day smoker Tobacco type: cigarettes Smoking Pack-years: Smoking packs per day: 1 Smoking cigarettes per day: 20.0 Years smoked: 50 Smoking pack-years: 50.00 Social Determinants of Health: Has the Lack of Transportation Kept You From Medical Appointments or From Getting Medications?: No Within the Past 12 Months, Were You Worried Whether Your Food Would Run Out Before You Got Money to Buy More?: Never True What is Your Housing Situation Today?: I Have Housing Are You Worried That in the Next 2 Months, You May Not Have Your Own Housing to Live In?: No Do You Have Trouble Paying Your Heating Or Electricity Bill?: No Do You Have Trouble Paying For Medicines?: No Are You Currently Unemployed and Looking for Work?: Yes Highest Level of Education Completed: Trade/Vocational Certific Do You Have Trouble With Childcare or the Care of a Family Member?: No Exam - Vital Signs Vital Signs - 24 hr 12/07/22 20:27 12/07/22 20:00 12/07/22 21:44 Temperature 36.5 C Pulse Rate 91 Respiratory Rate 21 H Blood Pressure 121/67 Pulse Oximetry 100 100 Oxygen Delivery Room Air Room Air 12/08/22 06:19 12/08/22 10:03 12/08/22 09:00 Temperature 36.4 C Pulse Rate 78 Respiratory Rate 16 Blood Pressure 116/63 Pulse Oximetry 99 96 Oxygen Delivery Room Air Room Air - Exam HEENT: EOMI, PERRLA, mucous membranes moist and pink Neck: supple Lungs: clear to auscultation, normal air movement Heart: no murmurs, gallops, or rubs, regular rhythm Abdomen: abdomen soft, distended, tender Extremities: normal pulses Integumentary: no abnormalities Neurological: normal speech Psychological: mental status NL, mood NL - Lab Results Laboratory Last Values WBC 10.2 K/mm3 (4.5-10.0) H 12/08/22 05:07 RBC 2.60 M/mm3 (4.6-6.20) L 12/08/22 05:07 Hgb 7.3 g/dL (14.0-18.0) L 12/08/22 05:07 Hct 23.4 % (42.0-52.0) L 12/08/22 05:07 MCV 90.0 fl (80-100) 12/08/22 05:07 MCH
--- NOTE | 2022-12-08 17:15 | PM.DS ---
DS: Admitting Diagnosis Discharge Date 12/08/2022 DS: Summary Time Spent with Patient Time attestation: Total time spent providing and/or coordinating discharge services: DS: Data Data Completed and Pending Pending studies at discharge: Pending at discharge 12/06/22 13:07 Surgical [PTH] Routine 12/07/22 07:51 Surgical [PTH] Routine Labs on day of discharge: Labs from last 24 hours 12/08/22 05:07 WBC 10.2 H RBC 2.60 L Hgb 7.3 L Hct 23.4 L MCV 90.0 MCH 28.1 MCHC 31.2 L RDW 17.6 H Plt Count 274 MPV 9.3 Immature Gran % (Auto) 0.8 H Neut % (Auto) 83.5 H Lymph % (Auto) 9.1 L [place] % (Auto) 6.0 Eos % (Auto) 0.4 Baso % (Auto) 0.2 Lymph # (Auto) 0.93 [place] # (Auto) 0.6 Eos # (Auto) 0.0 Baso # (Auto) 0.0 Abs Immat Gran (auto) 0.08 H Absolute Neuts (auto) 8.5 H Absolute Nucleated RBC 0.0 Nucleated RBC % 0.0 Sodium 133 L Potassium 2.8 L* Chloride 106 Carbon Dioxide 26 Anion Gap 1 L BUN 4 L Creatinine 0.50 L Estim Creat Clear Calc 102 Estimated GFR > 60 Glucose 126 H Calcium 7.5 L Magnesium 2.0 Total Bilirubin 0.5 AST 23 ALT 11 Alkaline Phosphatase 195 H Total Protein 5.0 L Albumin 2.2 L Preliminary micro results at discharge 12/06/22 01:24 Blood Culture - Preliminary Blood 12/06/22 01:24 Blood Culture - Preliminary Blood Discharge Plan Discharge Consulting providers: Danny Arnold; Basil Sanchez; David William; Satinder Lewis; Navarro Matson Patient Instructions: Pain Management (GEN) Discharge Medications: No Action aspirin 325 mg Tablet 325 mg PO PRN PRN (Reason: Pain) Patient Comments: pt takes as prescribed per the package Date of admission: 12/07/22 09:47 Primary Care Provider: PHYSICIAN,LAB SUPPORT SERVICE TECH Admitting Provider: Kenna Garcia Attending physician on admission: Kenna Garcia Condition: Stable
--- NOTE | 2022-12-09 17:01 | PM.TDS ---
Transfer Discharge Sum: Prov Provider Date of admission: 12/07/22 09:47 Primary care physician: TECHNICAL HEALTHCARE CONSULTANT PHYSICIAN Admitting clinician: Kenna Garcia DO Consults: 12/05/22 Consult to Physician Routine Comment: Consulting Provider: Basil Sanchez Reason for consultation: Colovesicular fistula Has provider been notified: Yes 12/06/22 Consult to Physician Routine Comment: Consulting Provider: Satinder Lewis Reason for consultation: Colovesicular fistula Has provider been notified: Yes Consult to Physician Routine Comment: Spoke to 12/06/22 @ 0951 (,us) Consulting Provider: David William call person/MD group to consult: Gastroenterology--call in a.m. 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 fistula Status: Acute (2) Acute UTI: Code(s): N39.0 - Urinary tract infection, site not specified Status: Acute (3) Abdominal pain: Code(s): R10.9 - Unspecified abdominal pain Status: Acute (4) Liver masses: Code(s): R16.0 - Hepatomegaly, not elsewhere classified Status: Acute (5) Mural thickening of sigmoid colon: Code(s): K63.9 - Disease of intestine, unspecified Status: Acute Transfer Discharge Sum: Med Medications Active and Home Medications: Home Medications aspirin 325 mg tablet 325 mg PO PRN PRN Pain 12/06/22 [History Confirmed 12/06/22] Transfer Discharge Sum: Hosp Hospital Course Hospital course: Lenny Glover Jr. is a 62 year old male presented to the ED with 2-3 weeks history of passing gas and feces to urine.? He has some discomfort in the lower abdominal area however no discrete pain reported.? He has also noticed the lumpiness in his lower left abdomen.? He came to the ER for evaluation.? UA suggestive for UTI.? CT abdomen with focal wall thickening of distal sigmoid colon consistent with primary malignancy with liver masses consistent with metastatic disease.? 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 Urology and general surgery has been consulted.? Started on IV Zosyn which will be continued.? Urine culture with E coli and group C Streptococcus.? Continue Zosyn IV.? General surgery suggest oncology consultation.? Oncology consultation obtained. Needs to fix fistula before chemotherapy can be started. General surgery suggested higher center transfer for complicated surgery involving fistula. Discussed with [facility] and was accepted by colorectal surgeon team. Status post colonoscopy with colonic mass biopsies were obtained. Suspected to be malignant. Biopsies were pending by the time of discharge. Time Spent with Patient Time attestation: Total time spent providing and/or coordinating transfer services: 40 minutes Exam Narrative: APPEARANCE: Well appearing, no pain, no distress, well-nourished. HEAD: normocephalic, atraumatic. EYES: PERRLA/EOMI, conjunctivae clear. NOSE: Normal no drainage EARS:TMS clear with good light reflex. THROAT: Pharynx clear, no exudate. NECK: Supple. No adenopathy, no masses. RESPIRATORY: Airway patent, respirations nonlabored. Clear to auscultation bilaterally, no rales, rhonchi, wheezing. CARDIOVASCULAR: Regular rate and rhythm without murmurs rubs or gallops. ABDOMINAL: Suprapubic and left lower quadrant tenderness to palpation MUSCULOSKELETAL: Moves all extremities. Strength/ROM intact, No edema, No calf tenderness. NEURO:
== END 2022-12-08 18:48 | disposition short-term general hospital (02) | DRG 468 ==
LOC: ANHED 22:59 → ANH2MED 12-06 01:48
PROVIDERS: Internal Medicine Gastroenterology; Student in an Organized Health Care Education/Training Program; Surgery; Admitting Provider Internal Medicine; Emergency Provider Emergency Medicine; Visit Provider Internal Medicine
PROC: 0DJD8ZZ Inspection of Lower Intestinal Tract, Via Natural or Artificial Opening Endoscopic (ICD-10-PCS; CPT 45378; principal; 2022-12-07 07:30)
DX: N32.1 Vesicointestinal fistula (principal); C18.9 Malignant neoplasm of colon, unspecified; C79.9 Secondary malignant neoplasm of unspecified site; R16.0 Hepatomegaly, not elsewhere classified; N39.0 Urinary tract infection, site not specified; B95.4 Other streptococcus as the cause of diseases classified elsewhere; B96.20 Unspecified Escherichia coli [E. coli] as the cause of diseases classified elsewhere; E11.9 Type 2 diabetes mellitus without complications; E78.5 Hyperlipidemia, unspecified; F17.210 Nicotine dependence, cigarettes, uncomplicated; I10 Essential (primary) hypertension; Z79.82 Long term (current) use of aspirin
CPT/HCPCS: 36415; 47000; 74176; 76942; 80053; 81001; 82378; 83690; 83735; 85025; 85610; 85730; 87040; 87077; 87086; 87147; 87186; 88305; 88341; 88342; 96360; 96361; 96365; 99285; A9270; G0378; J0696; J2543; J2704; J3480; J7030; J7040; J7120

== ENCOUNTER 2022-12-15 03:42 | Emergency (ER) | payer MEDICAID, SELFPAY ==
--- NOTE | ~2022-12-15 | CT_ITS ---
EXAMINATION: CT abdomen pelvis wo con DATE: 12/15/2022 04:35 INDICATION: Abdominal swelling. TECHNIQUE: Computed tomography (CT) of the abdomen and pelvis was performed without intravenous contr ast. Automated exposure control and iterative reconstruction technique were employed. The dose-length product was 353.32 mGy-cm. COMPARISON: CT abdomen and pelvis 12/05/2022 FINDINGS: The visualized portions of the lung bases demonstrate mild atelectasis. No pleural effusion . The heart size is normal. There are coronary artery calcifications. No pericardial effusion. There are greater than 10 masses in the liver measuring up to 2 cm. The gallbladder, spleen, pancreas, adre nal glands, and kidneys are normal. There is a diverting colostomy on the left. There is a 5.8 cm mas s involving the sigmoid colon with involvement of the bladder wall. There is a mass of the more dista l sigmoid colon. There is calcified atherosclerosis of the aorta and many of the other arteries. Ther e is free intraperitoneal gas and gas in the abdominal wall, consistent with recent surgery. There is a moderate volume of ascites. There is aortocaval lymphadenopathy. Body wall edema is noted. There i s severe lumbar spondylosis. There is mild chronic anterior wedging of multiple thoracic vertebral erika dies. IMPRESSION: 1. Mass of the distal sigmoid colon, consistent with primary malignancy. 2. Liver masses, consistent metastatic disease. 3. Mass involving the sigmoid colon and bladder wall, likely chronic diverticulitis with fistula. 4. Aortocaval lymphadenopathy, consistent metastatic disease. 5. Worsened moderate volume of ascites. Reviewed, dictated and finalized at location E. IMPRESSION: 1. Mass of the distal sigmoid colon, consistent with primary malignancy. 2. Liver masses, consistent metastatic disease. 3. Mass involving the sigmoid colon and bladder wall, likely chronic diverticul itis with fistula. 4. Aortocaval lymphadenopathy, consistent metastatic disease. 5. Worsened moderate volume of ascites.
[2022-12-15 03:44] VITALS: BP 133/71; PULSE 109; RESP 18; O2SAT 99
[2022-12-15 03:53] VITALS: BP 133/71; PULSE 110; RESP 20; TEMP 36.8; O2SAT 100
[2022-12-15 03:54] VITALS: TEMP 36.8
--- NOTE | 2022-12-15 04:15 | ED.GENADULT ---
HPI - General Adult General Chief complaint: Unspecified Stated complaint: Swelling Source: patient Mode of arrival: ambulatory Limitations: no limitations History of Present Illness HPI narrative: Patient recently had an ostomy bag placed 3 days ago at [facility]. Today woke up with the entire left side of his abdomen swelling. Swelling has gone down since arrival to ER. Had liver and colon biopsy recently. Pt has history of colon cancer, suspecting to have metastasized to the liver. Also has a colon/bladder fistula. Related Data Allergies Allergy/AdvReac Type Severity Reaction Status Date / Time vince Allergy Nausea Verified 12/15/22 03:50 Review of Systems Constitutional: Constitutional: Reports as per HPI and Reports no additional constitutional complaints Eyes: Eyes: Reports as per HPI and Reports no additional eye complaints ENT: Reports system reviewed and no additional complaints, except as documented and Reports as per HPI Cardiovascular: Cardiovascular: Reports as per HPI and Reports no additional cardiovascular complaints Respiratory: Respiratory: Reports as per HPI and Reports no additional respiratory complaints Gastrointestinal: Gastrointestinal: Reports as per HPI and Reports no additional gastrointestinal complaints Genitourinary: Genitourinary: Reports as per HPI Musculoskeletal: Musculoskeletal: Reports no additional musculoskeletal complaints and Reports as per HPI Integumentary/Breasts: Skin/Breast: Reports system reviewed and no additional complaints, except as docu and Reports as per HPI Neurologic: Reports system reviewed and no additional complaints, except as documented and Reports as per HPI Psychiatric: Psychiatric: Reports no additional psychiatric complaints and Reports as per HPI Endocrine: Endocrine: Reports no additional endocrine complaints and Reports as per HPI Hematologic/Lymphatic: Hematologic/Lymphatic: Reports no additional hematologic/lymphatic complaints and Reports as per HPI Allergic/Immunologic: Allergic/Immunologic: Reports no additional allergic/immunologic complaints and Reports as per HPI PENDING SALE TO [facility] Past Medical History Medical History HTN (hypertension) Hyperlipidemia Nicotine dependence, cigarettes, uncomplicated Type 2 diabetes mellitus Surgical History Surgical History No significant past surgical history No significant past surgical history Family History Family History Father Skin cancer Mother Unintentional weight loss Social History Social History Smoking packs per day: 1 Smoking cigarettes per day: 20.0 Years smoked: 50 Smoking pack-years: 50.00 Smoking status: Current every day smoker Tobacco type: cigarettes Alcohol intake: current Drinks per week: 1 Substance use: former Substance use type: marijuana Last use: ~ 40 yrs ago Lack of Transportation: No Lack of Food: Never True Current Housing: I Have Housing Concerned About Future Housing: No Difficulty Paying Gas/Electric Bills: No Difficulty Paying for Meds: No Currently Unemployed: YES Education: Trade/Vocational Certificate Difficulty w/ Childcare or Family Care: No Living arrangements: with family Spiritual care concerns: No Exam Const: General: cooperative, healthy appearing, comfortable, no acute distress, well developed, alert, awake, average body habitus and well nourished Nutritional Appearance: average body habitus and well nourished Orientation/consciousness: oriented to person, oriented to place and oriented to time Limitations: no limitations HENMT: Head: normal to inspection Ears: hearing grossly normal bilaterally, external ears normal and TM's normal bilaterally Face/Nose/Sinus: Normal external nose present, Normal na
[2022-12-15 04:50] LABS: Hematocrit 28.1 % (40.0-54.0); Hemoglobin 8.7 g/dL (14.0-18.0); Mean Corpuscular Hemoglobin 28.3 pg (27.0-31.0); Mean Corpuscular Volume 91.5 fL (78.0-102.0); Mean Platelet Volume 9.1 fl (8.7-11.0); Platelet Count Result 350 K/mm3 (150-420); Red Blood Count 3.07 M/mm3 (4.70-6.10); Red Cell Distribution Width 19.7 % (11.6-14.4)
[2022-12-15 05:24] LABS: Alanine Aminotransferase 15 U/L (16-63); Alkaline Phosphatase 355 U/L (46-116); Anion Gap 6 mmol/L (8-16); Aspartate Amino Transferase 34 U/L (15-37); Bilirubin,Total 0.2 mg/dL (0.00-1.00); Blood Urea Nitrogen 6 mg/dL (7-18); Calcium 8.6 mg/dL (8.5-10.1); Carbon Dioxide 29 mmol/L (21-32); Chloride 106 mmol/L (98-108); Estimated CRCL calculation 85 ml/min; Estimated Glomerular Filt Rate > 60; Glucose 141 mg/dL (70-99); Osmolality Calculated 291 mOsm/kg (285-295); Potassium 3.7 mmol/L (3.5-5.1); Sodium 141 mmol/L (136-145); Total Protein 6.3 g/dL (6.4-8.2)
[2022-12-15 05:47] LABS: Bilirubin Urine Negative (Negative); Blood Urine 3+ (Negative); Color Urine Red (Yellow); Glucose Urine UA Negative (Negative); Ketones Urine Negative (Negative); Leukocyte Esterase Ur 3+ LEU/UL (Negative); Nitrate Urine Negative (Negative); Protein Urine 2+ (Negative); Specific Grav Ur >= 1.030 (1.010-1.020); Urobilinogen Urine 0.2 mg/dL (0.2-1.0)
[2022-12-15 05:52] LABS: Add Urine Microscopic? YES; Appearance Urine Turbid (Clear); Bacteria Urine 4+ /hpf; RBC Urine >100 /hpf (0-2); WBC Clumps Urine Present /hpf; WBC Urine >100 /hpf (0-3)
--- NOTE | 2022-12-17 15:38 | PC.NURSE ---
FINAL URINE CULTURE RESULTS: NO GROWTH. NO ACTION NEEDED
== END 2022-12-15 07:00 | disposition home or self-care (01) ==
PROVIDERS: Emergency Provider Emergency Medicine
DX: R18.8 Other ascites (principal); I10 Essential (primary) hypertension; E78.5 Hyperlipidemia, unspecified; E11.9 Type 2 diabetes mellitus without complications; F17.210 Nicotine dependence, cigarettes, uncomplicated
CPT/HCPCS: 36415; 74176; 80053; 81001; 85027; 87086; 99284